=== PATIENT | male | born 1995 | race Caucasian/White ===

== ENCOUNTER 2018-11-27 09:19 | Inpatient (IN) | payer SELFPAY ==
[~2018-11-27] VITALS: Ht 172.7 cm; Wt 63.5 kg
[2018-11-27] MEDS ORDERED: NALOXONE HCL 1 MG/ML 2ML VIAL ONE (09:23)
[2018-11-27 09:47] LABS: CLARITY URINE CLEAR (CLEAR); COLOR URINE YELLOW (YELLOW); KETONES URINE TRACE (NEGATIVE); LEUKOCYTE ESTERASE URINE NEGATIVE (NEGATIVE); NITRITE URINE NEGATIVE (NEGATIVE); OCCULT BLOOD URINE 1+ (NEGATIVE); PROTEIN URINE 2+ (NEGATIVE); SPECIFIC GRAVITY URINE 1.018 (1.005-1.030); UROBILINOGEN URINE 0.2 E.U./dL (0.2-1.0)
[2018-11-27 09:54] LABS: PROTHROMBIN TIME 10.1 sec (9.6-11.0)
[2018-11-27 09:59] LABS: CHLORIDE 100 mEq/L (98-107)
[2018-11-27 10:03] LABS: ETHANOL BLOOD < 10 mg/dL
[2018-11-27 10:06] LABS: *AMPHETAMINES SCREEN URINE NEGATIVE (NEGATIVE); *BARBITURATES SCREEN URINE NEGATIVE (NEGATIVE); *BENZODIAZEPINES SCREEN URINE NEGATIVE (NEGATIVE); *COCAINE SCREEN URINE NEGATIVE (NEGATIVE); HEMATOCRIT. 50.8 % (42.0-52.0); HEMOGLOBIN. 16.1 g/dL (14.0-18.0); MEAN CORPUSCULAR HEMOGLOBIN 30.5 pg (28.0-32.0); MEAN CORPUSCULAR VOLUME 96.1 fL (80.0-94.0); PLATELET 325 x1000/uL (130-400); RED BLOOD CELL COUNT 5.28 mill/uL (4.7-6.1); RED CELL DISTRIBUTION WIDTH 14.2 % (11.6-14.6)
[2018-11-27] MEDS ORDERED: LORAZEPAM 2MG/ML CPJ IV STA (10:06)
[2018-11-27] MEDS ORDERED: SODIUM CHLORIDE 0.9% 1,000 ML IV ONE (10:06)
[2018-11-27] MEDS ORDERED: LORAZEPAM 2MG/ML CPJ ONE (10:06)
[2018-11-27 10:07] LABS: CANNABINOID URINE SCREEN PRESUMTIVE POSITIVE (NEGATIVE); METHADONE URINE SCREEN NEGATIVE (NEGATIVE); OPIATES URINE SCREEN NEGATIVE (NEGATIVE); PHENCYCLIDINE URINE SCREEN NEGATIVE (NEGATIVE)
[2018-11-27] MEDS ORDERED: NALOXONE HCL 1 MG/ML 2ML VIAL IV ONE (10:15)
[2018-11-27] MEDS ORDERED: SODIUM CHLORIDE 0.9% 1000ML BAG (SEPSIS BOLUS) IV NR (10:30)
[2018-11-27] MEDS ORDERED: VANCOMYCIN 1 G PREMIX 200 ML IV SCH (10:30)
[2018-11-27] MEDS ORDERED: PIPERACILLIN/TAZ 3.375G PREMIX 50 ML IV SCH (10:30)
[2018-11-27] MEDS ORDERED: LORAZEPAM 2MG/ML CPJ IV ONE (10:45)
[2018-11-27 11:08] LABS: PLATELET ESTIMATE NORMAL
[2018-11-27] MEDS ORDERED: HALOPERIDOL LACTATE 5MG/ML VIAL IM ONE ×2 (11:30→11:35)
[2018-11-27] MEDS ORDERED: DIPHENHYDRAMINE 50MG/ML VIAL IV ONE (11:30)
[2018-11-27] MEDS ORDERED: DIPHENHYDRAMINE 50MG/ML VIAL ONE (11:35)
[2018-11-27] MEDS ORDERED: SODIUM CHLORIDE 0.9% 1,000 ML IV SCH (14:57)
[2018-11-27] MEDS ORDERED: LORAZEPAM 2MG/ML CPJ IV PRN (15:00)
[2018-11-27] MEDS ORDERED: IPRATROPIUM/ALBUTEROL 0.5-3(2.5)MG/3ML NEB INH PRN (15:00)
[2018-11-27] MEDS ORDERED: ONDANSETRON HCL 4MG/2ML INJ IV PRN (15:00)
[2018-11-27] MEDS ORDERED: NITROGLYCERIN 0.4MG TABLET SL SL PRN (15:00)
[2018-11-27] MEDS ORDERED: MAGNESIUM/ALUMINUM HYDROXIDE/SIMETHICONE 30ML UDC PO PRN (15:00)
[2018-11-27] MEDS ORDERED: ZOLPIDEM TARTRATE 5MG TABLET PO PRN (15:00)
[2018-11-27] MEDS ORDERED: KETOROLAC 15MG/ML VIAL IV PRN (15:00)
[2018-11-27] MEDS ORDERED: GUAIFENESIN 200MG/10ML SUGAR FREE UDC PO PRN (15:00)
[2018-11-27] MEDS ORDERED: ACETAMINOPHEN 325MG TABLET PO PRN (15:00)
[2018-11-27] MEDS ORDERED: DOCUSATE SODIUM 100MG CAPSULE PO PRN (15:00)
[2018-11-27] MEDS ORDERED: HALOPERIDOL LACTATE 5MG/ML VIAL IM PRN (15:00)
[2018-11-27 16:26] VITALS: BP 103/48
[2018-11-27 16:31] VITALS: BP 103/48
[2018-11-27] MEDS ORDERED: CEFTRIAXONE 1 G PREMIX 50 ML IV SCH (17:00)
[2018-11-27 18:00] VITALS: BP 109/62
[2018-11-27] MEDS ORDERED: KCL 20MEQ/100ML PREMIX 100 ML IV NR (18:30)
[2018-11-27 20:00] VITALS: BP 110/62
[2018-11-27] MEDS: FAMOTIDINE 20MG TABLET PO SCH (21:44)
[2018-11-27 22:00] VITALS: BP 115/46
[2018-11-28] VITALS: BP 101/50
[2018-11-28 02:00] VITALS: BP 110/58
[2018-11-28 04:00] VITALS: BP 117/69
[2018-11-28 06:00] VITALS: BP 98/49
[2018-11-28 08:00] VITALS: BP 135/78
[2018-11-28] MEDS: FAMOTIDINE 20MG TABLET PO SCH (09:11)
== END 2018-11-28 09:34 | disposition left against medical advice (07) | DRG 720 ==
LOC: ER 09:19 → 5EST 10:47 → EDBEDREQ 10:51 → ENRESERV 13:14 → CANRESERV 13:14 → EDBEDREQSVC 13:27 → ENRESERV 14:23
PROVIDERS: ADMIT Internal Medicine; ATTEND Internal Medicine
DX: A41.9 Sepsis, unspecified organism (principal); G92 Toxic encephalopathy; F12.10 Cannabis abuse, uncomplicated; F17.200 Nicotine dependence, unspecified, uncomplicated; E87.6 Hypokalemia; M86.8X8 Other osteomyelitis, other site; Z53.21 Procedure and treatment not carried out due to patient leaving prior to being seen by health care provider
CPT/HCPCS: 36415; 71045; 80305; 80307; 80320; 80329; 82140; 82962; 83605; 84443; 84484; 85651; 86140; 93005; 96374; 96375; 99291; J0696; J1200; J1630; J2060; J2310; J2543; J3370; J3480; J7030; G0480